=== PATIENT | female | born 1950 | race Caucasian/White ===

== ENCOUNTER 2019-06-21 00:44 | Day surgery (SDC) | payer MEDICARE, SELFPAY ==
[2019-06-17 14:18] VITALS: BMI 20.2
[2019-06-21 06:34] VITALS: BP 156/72; PULSE 68; RESP 16; TEMP 37.1; O2SAT 99; BMI 20.5
[2019-06-21] MEDS: LACTATED RINGERS 1,000 ML 150 ML IV CONT (06:40)
--- NOTE | 2019-06-21 07:08 | P.PNAN_ITS ---
Anes - Initial Pre Proc Eval Procedure: Operation Date: 06/21/19 07:30 Proposed Procedures p Screening Colonoscopy - Nick Reynoso MD Date/Time: 06/21/19 07:08 Surgeon: Nick Reynoso MD Pre Op Diagnosis: Neoplasm Screening Patient Data Age: 69 Gender: F Height: 5 ft 4 in Weight: 54.2 kg Last Vital Signs Temp 37.1 C 06/21/19 06:34 Pulse 68 06/21/19 06:34 Resp 16 06/21/19 06:34 BP 156/72 H 06/21/19 06:34 Pulse Ox 99 06/21/19 06:34 Allergies Allergy/AdvReac Type Severity Reaction Status Date / Time NKDA Allergy Mild Uncoded 06/21/19 06:32 Home Medications Medication Instructions Recorded Confirmed Type lisinopril [Prinivil] 10 mg PO DAILY 06/17/19 06/21/19 History Patient hx anesthesia problems: none Family hx anesthesia problems: none [facility] Past Medical History Medical History (Updated 06/21/19 @ 07:09 by Enrique Hawk MD) HTN (hypertension) Family History Family History Father Family history of lymphoma Patient's father is , Onset Age: 82 Social History Social History Smoking status: Never smoker Alcohol intake: current Gender identity (if verbalized by the patient): Female Anes - Eval Final PreProcedure Day of Procedure 06/21/19 07:08 Patient weight: normal Heart: regular rate and rhythm Lungs: clear to auscultation Airway: Mallampati scale class 1 Neurological: alert and oriented Last oral intake: >/= 8 hours ASA classification: II Emergent: no Anesthetic plan: proceed Anesthesia type and monitoring: general GIVS and standard monitoring Informed Consent: The patient's anesthetic plan and its attendant risks and benefits were discussed with the patient/family/POA. Questions were solicited and answers provided to the satisfaction of the patient/family/POA.
--- NOTE | 2019-06-21 07:40 | P.CONGI_ITS ---
Assessment and Plan Additional Plan This is a 69-year-old white female patient seen in evaluation at the request of Dr. Carol Enriquez. Patient presents for neoplasia screening. Patient's current weight appetite bowel movements are normal. Her she denies any blood in her stools. She denies abdominal pain. Her last colonoscopy was in 2 thought Family history noncontributory. Past medical history is significant for hypertension Medications include lisinopril and vitamins. No known drug allergies. Physical exam reveals her to be alert. Vital signs stable. HEENT exam unremarkable. Lungs are clear to auscultation and percussion. Heart is without murmur or extra sounds. Abdominal exam bowel sounds are present soft nontender with no organomegaly. Digital external rectal exam is normal Impression 1. Neoplasia screening. Advised because of her age Plan is for screening colonoscopy. GI Consult Note Consult date/time: 06/21/19 07:40 HPI: Caroline Francois is a 69 year old female [facility] Past Medical History Medical History (Updated 06/21/19 @ 07:09 by Enrique Hawk MD) HTN (hypertension) Family History Family History Father Family history of lymphoma Patient's father is , Onset Age: 82 Social History Social History Smoking status: Never smoker Alcohol intake: current Gender identity (if verbalized by the patient): Female Meds Home Medications and Allergies Home Medications Medication Instructions Recorded Confirmed Type lisinopril [Prinivil] 10 mg PO DAILY 06/17/19 06/21/19 History Allergies Allergy/AdvReac Type Severity Reaction Status Date / Time NKDA Allergy Mild Uncoded 06/21/19 06:32 Vital Signs Vital Signs - 24 hr 06/21/19 06:34 Temperature 37.1 C Pulse Rate 68 Respiratory Rate 16 Blood Pressure 156/72 H Pulse Oximetry 99
[2019-06-21 07:57] VITALS: BP 102/45; PULSE 64; RESP 12; O2SAT 99
[2019-06-21 08:07] VITALS: BP 105/52; PULSE 72; RESP 18; O2SAT 100
[2019-06-21 08:17] VITALS: BP 121/56; PULSE 65; RESP 20; O2SAT 100
== END 2019-06-21 08:41 | disposition home or self-care (01) ==
PROVIDERS: PCP Family Medicine; Visit Provider Internal Medicine Gastroenterology
PROC: 0DJD8ZZ Inspection of Lower Intestinal Tract, Via Natural or Artificial Opening Endoscopic (ICD-10-PCS; CPT 45378; principal; 2019-06-21 07:30)
DX: Z12.11 Encounter for screening for malignant neoplasm of colon (principal); K57.30 Diverticulosis of large intestine without perforation or abscess without bleeding; K64.8 Other hemorrhoids; I10 Essential (primary) hypertension
CPT/HCPCS: G0121; J2704; J7120

== ENCOUNTER 2024-02-07 10:30 | Outpatient (CLI) | payer MEDICARE, SELFPAY ==
[2024-02-07 17:17] LABS: Influenza A QL RT-PCR Negative (Negative); Influenza B QL RT-PCR Negative (Negative); RSV RNA, RT-PCR Negative (Negative); SARS-CoV-2 RNA PCR Positive (Negative)
== END 2024-02-07 10:31 | disposition home or self-care (01) ==
PROVIDERS: PCP Family Medicine; Visit Provider Nurse Practitioner
DX: R50.9 Fever, unspecified (principal); R05.9 Cough, unspecified
CPT/HCPCS: 87637

== ENCOUNTER 2024-09-24 15:55 | Outpatient (CLI) | payer MEDICARE, SELFPAY ==
--- NOTE | ~2024-09-24 | XR_ITS ---
XR shoulder LT min 2V 09/24/2024 16:03 Indication: Left shoulder pain Procedure: 4 views left shoulder Comparison: No prior studies for comparison. Findings: No fracture, subluxation or dislocation. There is anatomic alignment. No soft tissue abnorm ality. No foreign bodies. There is mild glenohumeral joint osteoarthritis. Impression: 1: Mild glenohumeral joint osteoarthritis. Reviewed, dictated and finalized at location A. Impression: 1: Mild glenohumeral joint osteoarthritis.
== END 2024-09-24 15:56 | disposition home or self-care (01) ==
LOC: GOSHIMG 15:55
PROVIDERS: PCP Nurse Practitioner; Visit Provider Nurse Practitioner
DX: M19.012 Primary osteoarthritis, left shoulder (principal)
CPT/HCPCS: 73030